=== PATIENT | female | born 1980 ===

== ENCOUNTER 2024-07-09 11:42 | Day surgery (SDC) | payer OTHER ==
[2024-07-06 10:31] VITALS: BP 110/66
[2024-07-06 10:56] LABS: PH,URINE 6.5 (5.0-8.0); URINE APPEARANCE Clear; URINE BILIRRUBIN Negative (NEGATIVE); URINE BLOOD Negative; URINE COLOR Yellow; URINE GLUCOSE Negative (NEGATIVE); URINE KETONE Negative (NEGATIVE); URINE LEUKOCYTE Negative; URINE NITRATE Negative; URINE PROTEIN Negative (NEGATIVE); URINE UROBILINOGEN 0.2 E.U./dl
[2024-07-06 10:58] LABS: HEMATOCRIT 42.3 % (36.0-45.00); MEAN CELL VOLUME 85.9 fL (80.00-100.00); MEAN CORPUSCULAR HEMOGLOBIN 28.4 pg (27.00-32.0); MEAN CORPUSCULAR HGB CONC 33.1 g/dl (32.0-36.0); PLATELET COUNT 294 K/uL (150-450); RED BLOOD COUNT 4.93 M/uL (4.00-6.00); RED CELL DISTRIBUTION WIDTH 13.2 % (11.5-14.5)
[2024-07-06 11:00] LABS: URINE BACTERIA 1185.7 uL (0.0-1933); URINE RBC 30.1 uL (0.0-20.8); URINE WBC 4.4 uL (0.0-23.2)
[2024-07-06 11:14] LABS: INR 0.96; PARTIAL THROMBOPLASTIN TIME 27.2 SECONDS (22.0-34.0); PROTHROMBIN TIME 10.5 SECONDS (9.0-11.5)
[2024-07-06 11:46] LABS: ALBUMIN 3.9 gm/dL (3.4-5.0); CALCIUM 9.6 mg/dL (8.5-10.1); CREATININE SERUM 0.52 mg/dL (0.55-1.02); GFR 129.95; PHOSPHOROUS 3.1 mg/dL (2.5-4.9); POTASSIUM 4.43 mEq/L (3.5-5.1)
[~2024-07-09] VITALS: Ht 160 cm; Wt 61.2 kg
[2024-07-09] MEDS ORDERED: CEFAZOLIN SODIUM 1,000 MG VIAL ONE ×2 (13:25→13:30)
[2024-07-09] MEDS ORDERED: POVIDONE-IODINE 118 ML BOTT TOP ONE (14:02)
[2024-07-09] MEDS ORDERED: EPINEPHRINE HCL/PF 1 MG/ML AMPUL IJ ONE (15:00)
[2024-07-09] MEDS ORDERED: DEXAMETHASONE SODIUM PHOSPHATE 4 MG/ML VIAL IV ONE (15:00)
[2024-07-09] MEDS ORDERED: CIPROFLOXACIN2.5 ML OTIC (15:27)
[2024-07-09] MEDS ORDERED: CEPHALEXIN500 MG PO (15:28)
[2024-07-09] MEDS ORDERED: CIPROFLOXACIN HCL 0.175 MG/DR DROPS OTIC ONE (16:45)
== END 2024-07-09 17:55 | disposition home or self-care (01) ==
LOC: CIR.AMB 11:42
PROVIDERS: ATTEND Otolaryngology Otology & Neurotology
DX: H80.92 Unspecified otosclerosis, left ear (principal); H90.A12 Conductive hearing loss, unilateral, left ear with restricted hearing on the contralateral side; Z91.012 Allergy to eggs; Z91.011 Allergy to milk products; Z91.013 Allergy to seafood; Z91.018 Allergy to other foods